=== PATIENT | female | born 1970 | race Caucasian/White ===

== ENCOUNTER 2024-01-17 22:54 | Emergency (ER) | payer MEDICAID ==
[~2024-01-17] VITALS: Ht 152.4 cm; Wt 72.7 kg
[~2024-01-17 22:54] MED LIST: BACTDSB PO; HYDR-4062 PO; NAPR-1025 PO
[2024-01-17 23:10] VITALS: BP 115/74; PULSE 69; RESP 18; TEMP 98.6
[2024-01-18] MEDS: ACETAMINOPHEN 500 MG TABLET PO ONE (00:15)
[2024-01-18] MEDS ORDERED: TRAM50TA5 PO (01:49)
== END 2024-01-18 02:32 | disposition home or self-care (01) ==
LOC: EMS 22:56
DX: S82.892A Other fracture of left lower leg, initial encounter for closed fracture (principal); Z88.2 Allergy status to sulfonamides; Z98.890 Other specified postprocedural states; X58.XXXA Exposure to other specified factors, initial encounter; Y93.89 Activity, other specified; Y92.89 Other specified places as the place of occurrence of the external cause; Y99.8 Other external cause status
CPT/HCPCS: 99283